=== PATIENT | female | born 1955 | race Caucasian/White ===

== ENCOUNTER 2016-11-21 08:13 | Day surgery (SDC) | payer OTHER ==
[2016-11-21] VITALS (10 sets, daily range): BP systolic 104–143; BP diastolic 44–79; PULSE 74–100; RESP 16–24; Ht 157.5 cm; Wt 65.4 kg
[~2016-11-21] VITALS: Ht 157.5 cm; Wt 65.4 kg
[~2016-11-21 08:13] MED LIST: ALEN70TA30 PO; ATEN50TA PO; BENA40TA41 PO; CALC-277 PO; GLIP5TAB13 PO; METF1000 PO; OMEG500C PO; OMEP40CA6 PO; SIMV10TA PO; SITA25TA3 PO
[2016-11-21] MEDS ORDERED: GLIP2.5T3 PO (09:31)
[2016-11-21] MEDS ORDERED: OMEG1CAP90 PO (09:33)
[2016-11-21] MEDS ORDERED: TROPICAMIDE 1% 2 ML OPH OPER SCH (10:00)
[2016-11-21] MEDS ORDERED: CIPROFLOXACIN 0.3% 2.5 ML OPH OPER SCH (10:00)
[2016-11-21] MEDS ORDERED: CYCLOPENTOLATE/PHENYLEPH 2 ML OPH OPER SCH (10:00)
[2016-11-21] MEDS ORDERED: DICLOFENAC 0.1% 2.5 ML OPH OPER SCH (10:00)
[2016-11-21] MEDS ORDERED: CEFAZOLIN 1 GM INJ ONE (11:46)
[2016-11-21] MEDS ORDERED: HYALURONATE/CHONDROITIN 1ML OPH INJ ONE (11:46)
[2016-11-21] MEDS ORDERED: DEXAMETHASONE 4 MG/ML 1 ML INJ ONE (11:46)
[2016-11-21] MEDS ORDERED: LIDOCAINE 4% (MPF) 5 ML INJ ONE (11:46)
[2016-11-21] MEDS ORDERED: CARBACHOL 0.01% 1.5 ML OPH INJ ONE (11:46)
[2016-11-21] MEDS ORDERED: EPINEPHrine 1 MG INJ ONE (11:46)
[2016-11-21] MEDS ORDERED: GENTAMICIN 80 MG INJ ONE (11:46)
[2016-11-21] MEDS ORDERED: hydrALAzine 20 MG INJ IV PRN (12:00)
[2016-11-21] MEDS ORDERED: OXYCODONE/ACETAMINOPHEN (5/325) TAB PO PRN (12:00)
[2016-11-21] MEDS ORDERED: HYDROmorphONE (0.2 MG/ML) 10ML SYG IV PRN (12:00)
[2016-11-21] MEDS ORDERED: FENTAnyl 50 MCG/ML VIAL IV PRN (12:00)
[2016-11-21] MEDS ORDERED: LABETALOL HCL 20MG INJ IV PRN (12:00)
[2016-11-21] MEDS ORDERED: ONDANSETRON 4 MG INJ IV PRN (12:00)
[2016-11-21] MEDS ORDERED: PROPOFOL 20 ML ONE (12:06)
[2016-11-21] MEDS ORDERED: MIDAZOLAM 1 MG/ML 2 ML INJ ONE (12:06)
[2016-11-21] MEDS ORDERED: FENTAnyl 50 MCG/ML VIAL ONE (12:06)
[2016-11-21] MEDS ORDERED: LIDOCAINE 2% (SDV) 5 ML INJ ONE (12:06)
--- NOTE | 2016-11-21 13:06 | OPR ---
DATE OF OPERATION: 11/21/2016 PREOPERATIVE DIAGNOSIS: Cataract, left eye. POSTOPERATIVE DIAGNOSIS: Cataract, left eye. OPERATION PERFORMED: Cataract extraction with lens implant, left eye. SURGEON: Jolene Cotton MD ANESTHESIOLOGIST: Dr. Martinez. ANESTHESIA: Local standby. PROCEDURE: The patient was brought to the operating room and placed on the table with an IV in plac e and the patient attached to an monitoring tech. Oxygen was given via face mask. After some intravenous sedation was administered, local anesthesia was given using Xylocaine 2% with epinephrine, mixed with Marcaine 0.5%. This was given in a lid block and retrobulbar injection. The patient was then prepped and draped in the usual sterile manner. A wire lid speculum was inserted between the lids of the left eye. A Superblade was used to enter th e anterior chamber at the corneoscleral limbus at the 10:30 o'clock position. A separate incision wa s made using a 3.0-mm keratome which entered the corneoscleral junction at the 12 o'clock position. Through this 3-mm opening, an irrigating cystotome was introduced into the anterior chamber. The suzanne mber was filled with Viscoat and an anterior capsulotomy was performed. Balanced salt solution was t hen used for hydrodissection of the lens. A phacoemulsification handpiece was then brought into the field and introduced into the anterior chamber. The lens nucleus was emulsified using a deep groove and cracking the nucleus into quadrants. Following this, each quadrant was aspirated and emulsified at the pupillary margin. After this was completed, the irrigation/aspiration handpiece was brought to the field, introduced i nto the posterior chamber, and the lens cortical material was removed. When this was completed, maryann tional Viscoat was injected into the anterior and posterior chambers. The 3-mm opening had its internal lips enlarged, and then the posterior chamber intraocular lens anna suring 24.5 diopters (Bausch and Lomb model LI61AO) was then injected into the posterior chamber usi ng the lens injector system. After the leading haptic was introduced into the capsular bag and the l ens optic was present in the center of the eye, the injector was removed and the trailing haptic was grasped with non-toothed forceps and introduced into the capsular fold superiorly. A Sinskey hook w as then used to rotate the intraocular lens so that the lips were oriented in the horizontal meridia n. One 10-0 nylon suture was placed across the wound. Prior to tying, the irrigation/aspiration handpiece was reintroduced into the anterior chamber to re move the Viscoat. Miochol was instilled to constrict the pupil, and then the 10-0 nylon suture was t ied. The ends were cut short and then the knot was buried. Then, 0.5 mL of dexamethasone and 0.5 mL of Ancef were injected into the sub-Tenon space in the infe rior fornix. Ciloxan drops were then placed on the surface of the eye. The speculum was removed and a patch was applied. The patient then left the operating room in satisfactory condition. Dictated By: JOLENE SANTOYO/NICK Conf#: [id number] DID#: [id number]
--- NOTE | 2016-11-22 17:51 | RADRPT ---
Vent Rate: 90 bpm RR Interval: 0 msec IA Interval: 144 msec QRS Duration: 72 msec QT Interval: 368 msec QTC Interval: 450 msec P-R-T [place]: 43 - 26 - 34 degrees Normal sinus rhythm Normal ECG Electronically Signed By: Javier Arguello [id number]
== END 2016-11-21 13:51 | disposition home or self-care (01) ==
LOC: SDS 08:13
PROVIDERS: ATTEND Ophthalmology
DX: H26.9 Unspecified cataract (principal); I10 Essential (primary) hypertension; E11.9 Type 2 diabetes mellitus without complications; E78.5 Hyperlipidemia, unspecified
CPT/HCPCS: 66984; 82962; 93005; J0171; J0690; J1100; J1580; J2250; J3010; V2632; Z7512; Z7610

== ENCOUNTER 2017-03-02 08:02 | Day surgery (SDC) | payer OTHER ==
[~2017-03-02] VITALS: Ht 157.5 cm; Wt 65.6 kg
[~2017-03-02 08:02] MED LIST changes: +GLIP2.5T3 PO; -GLIP5TAB13 PO; +OMEG1CAP90 PO; -OMEG500C PO
[2017-03-02 09:23] VITALS: Ht 157.5 cm; Wt 65.6 kg
[2017-03-02] MEDS ORDERED: ASPIRIN PO (09:29)
[2017-03-02] MEDS ORDERED: LIDOCAINE 4% SOLUTION 50 ML BTL ONE (09:42)
--- NOTE | 2017-03-02 10:32 | OPPN ---
Date/Time of Note Date/Time of Note DATE: 03/02/17 TIME: 10:28 Proc Note GI Procedure Date 03/02/17 Pre-procedure Diagnosis heart burn screening colonoscopy Post-procedure Diagnosis gerd diverticulosis hemorrhoids Surgeon Dr Pinzon Silhouette Artist none Anesthesia Type: moderate sedation EBL none Transfusion required none Biopsy 1: gastric and esophageal bx Grafts/Implants none Tubes/Drains none Complication(s) none Pt Condition post procedure: stable Disposition: home Indications: screening/surveillance, upper abd Sx despite ther, other Operative\Procedure Findings gerd hem,otthoids diverticulosis Procedure Description egd colonoscopy see dictation egd [id number] colonoscopy [id number] LATOSHA PINZON MD Mar 02, 2017 10:32
[2017-03-02] MEDS ORDERED: MIDAZOLAM 1 MG/ML 2 ML INJ ONE ×2 (10:36)
[2017-03-02] MEDS ORDERED: FENTAnyl 50 MCG/ML VIAL ONE (10:36)
--- NOTE | 2017-03-05 11:33 | GILP ---
DATE OF PROCEDURE: 03/02/2017 PROCEDURE: Esophagogastroduodenoscopy. PREOPERATIVE DIAGNOSIS: Patient presenting with history of chronic heartburn. Rule out gastroesophageal reflux disease, rule out Lemon esophagus, rule out peptic ulcer disease. POSTOPERATIVE DIAGNOSIS: 1. Mild reflux esophagitis. 2. Mild diffuse gastritis. PROCEDURE: After informed written consent was obtained, the patient was asked to lie on the left lateral side. Versed 2 mg and 50 mcg of fentanyl were given as intravenous anesthesia. When the patient became somnolent, Olympus video upper endoscope was introduced into the oropharynx and then into the esophagus. Esophagus showed evidence of erosions above the GE junction, indicating mild reflux esophagitis. Biopsies were done to rule out Lemon esophagus. The scope at this time was advanced into the stomach. Stomach showed several areas of erythema, mostly in the fundus, compared to the rest of the stomach. Biopsy was done from the antrum, the lesser curvature of the fundus to rule out H pylori infection. The mucosa of the duodenum appeared normal up to the end of the 3rd portion. Endoscope at this time was withdrawn on the way out. No additional abnormalities detected, and the procedure was terminated. PLAN: Recommend Dexilant 60 mg once a day for 2 months. Dictated By: Regino Pinzon MD /julia/mya /Document#: [id number] ; DR VINSON
--- NOTE | 2017-03-05 11:33 | GILP ---
DATE OF PROCEDURE: 03/02/2017 PROCEDURE: Colonoscopy. PREOPERATIVE DIAGNOSIS: Screening colonoscopy, rule out colon polyps. POSTOPERATIVE DIAGNOSIS: Moderate degree of diverticulosis, which is not bleeding; moderate degree of internal and moderate degree of external hemorrhoids. No polyps noted. DESCRIPTION OF PROCEDURE: After the informed written consent was obtained, the patient was asked to lie on the left lateral side. Intravenous anesthesia was given, which included 3 mg Versed and 50 mcg of fentanyl. When the patient became somnolent, Olympus video colonoscope was introduced into the rectum, and scope was advanced all the way to the cecum. Moderate degree of diverticulosis noted all over the colon, including the cecum. There was no evidence of diverticulitis, no evidence of bleeding, no evidence of a colonic neoplasm. On the way out, further evaluation was carried out. Moderate degree of internal hemorrhoids noted, and moderate degree of external hemorrhoids were noted, and the procedure was terminated. PLAN: Recommend high-fiber diet. Repeat colonoscopy in 10 years. Dictated By: Regino Pinzon MD /julia/may /Document#: [id number]
== END 2017-03-02 11:01 | disposition home or self-care (01) ==
LOC: GIL 08:02
PROVIDERS: ATTEND Internal Medicine Gastroenterology
DX: Z12.11 Encounter for screening for malignant neoplasm of colon (principal); K21.0 Gastro-esophageal reflux disease with esophagitis; K29.60 Other gastritis without bleeding; I10 Essential (primary) hypertension; E11.9 Type 2 diabetes mellitus without complications; K64.8 Other hemorrhoids; K64.4 Residual hemorrhoidal skin tags
CPT/HCPCS: 43239; 45378; 82962; 88305; J2250; J3010; Z7610